=== PATIENT | female | born 1990 | race Caucasian/White ===

== ENCOUNTER → 2017-09-11 01:17 | Outpatient (CLI) | payer MEDICAID, SELFPAY ==
--- NOTE | 2017-09-11 10:12 | DI.REPORT_ITS ---
SYMPTOM/DIAGNOSIS: INTERVAL GROWTH, DO ON sep 12, Z34.83 OBSTETRICAL ASSESSMENT: There is a single intrauterine gestation. Estimated sonographic age is 35 weeks, 5 days. Estimated weight is 2717 grams which is the 46th percentile The fetus is in the breech position. Amniotic fluid was measured at 12.3 cm, visually amniotic fluid is within normal limits. Placenta is posterior . IMPRESSION: Single living intrauterine gestation. Estimated sonographic age is 35 weeks 5 days. Many abnormalities cannot be diagnosed. A normal exam does not exclude a congenital anomaly. Radiology No. [id number] LMP: Exam Date: 09/11/17 [facility] wks days on EDC ([facility]) 10/11/17 Confirmed: HISTORY: GROWTH, PRES ---- PREDICTED GESTATIONAL AGE NUMBER 35 +5 weeks with a range of 34 +5 week to 36 +5 weeks. 1 Determined by_[id number]___LMP___HISTORY Info. pertaining to fetus # PLACENTA PRESENTATION Grade II-III Cephalic___ Anterior___Posterior_XX__ Breech___XX_ (Urbano breech) Right Left Transverse(head right___ Fundal___Low-lying___Previa___ Transverse(head left___ Varying BIOMETRY AMNIOTIC FLUID BPD: 87 mm 35 +1 weeks Normal HC: 322 mm 36 +2 weeks AC: 315 mm 35 +3 weeks FL: 70 mm 35 +5 weeks AMNIOTIC FLUID INDEX >26 WK CRL: mm weeks Cisterna Magna: mm CI: 76 RUQ:_3.9 LUQ__2.0 Cerebellum: cm EFW: 2717 grams 46% Percentile RLQ:__2.2____LLQ__4.2 Total:__12.3__cms Composite AGE= 35 +5 wks EDC by US__10/11/17 BIOPHYSICAL PROFILE ANATOMY IDENTIFIED SCORE 0/2 Heart: 4-Chamber___Rate:BPM LVOT: RVOT: Amniotic Fluid(>2cms)____ Stomach: Kidneys: Respirations (>30 secs) Bladder: Post. Fossa: Body Flex/Extension 3 vessel cord: Ventricles: cord insertion: Lips:____ Extremity Flex/Extension spinal morphology: Nose: Total Score= Palate: NS=not seen
== END ==
PROVIDERS: PCP Nurse Practitioner; Visit Provider Advanced Practice Midwife
DX: Z34.83 Encounter for supervision of other normal pregnancy, third trimester (principal); Z36.2 Encounter for other antenatal screening follow-up
CPT/HCPCS: 76816; 87081

== ENCOUNTER → 2017-09-11 12:20 | Outpatient (REF) | payer MEDICAID, SELFPAY | LOC: LBN 12:20 | PROVIDERS: PCP Nurse Practitioner; Visit Provider Advanced Practice Midwife | DX: Z34.93 Encounter for supervision of normal pregnancy, unspecified, third trimester (principal) | CPT/HCPCS: 87081 ==

== ENCOUNTER 2017-10-05 14:24 | Outpatient (CLI) | payer MEDICAID, SELFPAY ==
[2017-10-05 17:41] LABS: *AMPHETAMINES SCREEN URINE Negative (Negative); *BARBITURATES SCREEN URINE Negative (Negative); *BENZODIAZEPINES SCREEN URINE Negative (Negative); Cannabinoids THC POSITIVE (Negative); Cocaine Screen,Urine Negative (Negative); METHADONE URINE SCREEN Negative (Negative); OPIATES URINE SCREEN Negative (Negative); Tricyclic Antidepressants Negative (Negative)
[2017-10-13 15:18] LABS: Buprenorphine Negative
== END 2017-10-05 14:25 ==
PROVIDERS: PCP Nurse Practitioner; Visit Provider Advanced Practice Midwife
DX: O32.0XX0 Maternal care for unstable lie, not applicable or unspecified (principal); O99.333 Smoking (tobacco) complicating pregnancy, third trimester; F17.210 Nicotine dependence, cigarettes, uncomplicated; Z3A.39 39 weeks gestation of pregnancy
CPT/HCPCS: 80307; 59025

== ENCOUNTER 2017-10-06 19:39 | Observation (INO) | payer MEDICAID, SELFPAY ==
[2017-10-06 20:57] LABS: HCT 33.2 % (36.0-46.0); HGB 11.4 g/dL (12.0-15.5); Mean Corp. HGB Concentration 34.3 g/dL (32.0-36.0); Mean Corpuscular Hemoglobin 29.2 pg (27.0-33.0); Mean Corpuscular Volume 85.1 fL (80-95); Mean Platelet Volume 10.5 fL (8.0-11.0); Platelet Count 176 x1000/uL (130-400); RBC Distribution Width 13.5 % (11.7-14.6); White Blood Cell Count 16.95 k/cumm (4.4-10.8)
[2017-10-06 21:17] LABS: ETHANOL BLOOD < 3.0 mg/dL (<3)
[2017-10-06 22:00] LABS: *AMPHETAMINES SCREEN URINE Negative (Negative); *BARBITURATES SCREEN URINE Negative (Negative); *BENZODIAZEPINES SCREEN URINE Negative (Negative); Cannabinoids THC POSITIVE (Negative); Cocaine Screen,Urine Negative (Negative); METHADONE URINE SCREEN Negative (Negative); OPIATES URINE SCREEN Negative (Negative); Tricyclic Antidepressants Negative (Negative)
== END 2017-10-06 23:20 | disposition home or self-care (01) ==
LOC: OBS 10-07 10:14
PROVIDERS: Admitting Provider Advanced Practice Midwife; PCP Nurse Practitioner; Visit Provider Advanced Practice Midwife
DX: O47.1 False labor at or after 37 completed weeks of gestation (principal); Z3A.39 39 weeks gestation of pregnancy
CPT/HCPCS: 36415; 80307; 85027; 86850; 86900; 86901; 80320; G0378

== ENCOUNTER 2017-10-07 10:30 | Inpatient (IN) | payer MEDICAID, SELFPAY ==
--- NOTE | 2017-10-07 13:22 | PLAC_PTH ---
PATIENT: MILDRED ESTRELLA LOC: OBS U#:[id number] AGE/SX: 26/F ROOM: OBS.305 RE10/07/[address]: Janell Velasquez CNM : 1990 BED: A DIS: 10/09/2017 SPEC #: [id number] RECD: 10/10/17 11:58 STATUS: ALMITA REDariela #: [id number] LUCRECIA: 10/07/17 13:[address]: Janell Velasquez DEPT: Surgical Specimen RECD BY: Neelima Rahman ENTERED: 10/10/17 12:02 SP TYPE: PLAC OTHR DR: Aydee Velazquez APRN Tissues: 1 - PLACENTA (3RD TRIMESTER) Procedures: GROSS AND MICRO LEVEL 5 Comments: [id number]
[2017-10-07] MEDS: Oxytocin 10 UNITS/ML VIAL IM (13:30)
[2017-10-07] MEDS: Methylergonovine 0.2 MG/ML VIAL IM (13:39)
[2017-10-07] MEDS: Normal Saline Flush 10 ML SYR IVP (13:50)
[2017-10-07] MEDS: Hamamelis Leaf/Glycerin 100 EACH BOX PR (15:55)
[2017-10-07] MEDS: Acetaminophen 325 MG TAB 650 MG PO (15:55)
[2017-10-07] MEDS: Ibuprofen 600 MG TAB PO (15:55)
[2017-10-07 17:25] LABS: HCT 39.4 % (36.0-46.0); HGB 13.4 g/dL (12.0-15.5); Mean Corpuscular Hemoglobin 29.1 pg (27.0-33.0); Mean Corpuscular Volume 85.5 fL (80-95); Mean Platelet Volume 11.9 fL (8.0-11.0); Platelet Count 201 x1000/uL (130-400); RBC 4.61 m/cumm (4.00-5.20); RBC Distribution Width 13.9 % (11.7-14.6); White Blood Cell Count 18.87 k/cumm (4.4-10.8)
[2017-10-08] MEDS: Ibuprofen 600 MG TAB PO ×3 (01:10→16:58)
[2017-10-08] MEDS: Acetaminophen 325 MG TAB 650 MG PO ×3 (01:10→16:58)
[2017-10-08] MEDS: Docusate Sodium 100 MG CAP PO (09:32)
--- NOTE | 2017-10-08 10:44 | W.OBCONSULT ---
History of Present Illness Narrative: Patient is kind of messed up I did make it stop so it is red and does smoke listening selective Process a scratch that scratch that they does not want to do things like this. Select this Insert provider meeting Chart note: Pt's status discussed at Provider meeting today, PFSH Family History Mother Diabetes Alcohol abuse Depression Father Substance abuse Sister Anxiety Brother Anxiety Depression Other Breast cancer Medical History ADHD (attention deficit hyperactivity disorder) Anxiety Depression Social History Smoking/Tobacco Use Status: Current every day Surgical History Biopsy of breast (10/14/14) Breast, Lumpectomy Results Labs : 10/07/17 11:40 Abnormal lab results 10/07/17 Range/Units 11:40 WBC 18.87 H (4.4-10.8) k/cumm MPV 11.9 H (8.0-11.0) fL Laboratory Tests 10/07/17 10/07/17 11:40 11:40 WBC 18.87 H RBC 4.61 Hgb 13.4 Hct 39.4 MCV 85.5 MCH 29.1 MCHC 34.0 RDW 13.9 Plt Count 201 MPV 11.9 H Patient ABO/Rh O Positive Antibody Screen Negative
[2017-10-08] MEDS: Prenatal Multivitamin w/CA,FE TAB 1 TAB PO (10:55)
[2017-10-08] MEDS: Sertraline 50 MG TAB 125 MG PO (11:00)
[2017-10-08 18:52] LABS: HCT 23.1 % (36.0-46.0); HGB 7.8 g/dL (12.0-15.5); Mean Corp. HGB Concentration 33.8 g/dL (32.0-36.0); Mean Corpuscular Hemoglobin 29.7 pg (27.0-33.0); Mean Corpuscular Volume 87.8 fL (80-95); Platelet Count 166 x1000/uL (130-400); RBC 2.63 m/cumm (4.00-5.20); RBC Distribution Width 13.8 % (11.7-14.6); White Blood Cell Count 11.88 k/cumm (4.4-10.8)
[2017-10-08] MEDS: Lidocaine 2% Multi-Dose 20 ML VIAL (21:00)
[2017-10-09] MEDS: Ibuprofen 600 MG TAB PO (06:44)
[2017-10-09] MEDS: Acetaminophen 325 MG TAB 650 MG PO (06:44)
== END 2017-10-09 11:52 | disposition home or self-care (01) | DRG 767 ==
PROVIDERS: Admitting Provider Advanced Practice Midwife; PCP Nurse Practitioner; Visit Provider Advanced Practice Midwife
DX: O73.0 Retained placenta without hemorrhage (principal); Z37.0 Single live birth; O63.9 Long labor, unspecified; O99.324 Drug use complicating childbirth; Z3A.39 39 weeks gestation of pregnancy; Z30.017 Encounter for initial prescription of implantable subdermal contraceptive; O99.03 Anemia complicating the puerperium; D64.9 Anemia, unspecified; F19.10 Other psychoactive substance abuse, uncomplicated; O99.334 Smoking (tobacco) complicating childbirth; F17.210 Nicotine dependence, cigarettes, uncomplicated; O99.344 Other mental disorders complicating childbirth; F41.8 Other specified anxiety disorders; F90.9 Attention-deficit hyperactivity disorder, unspecified type; O99.62 Diseases of the digestive system complicating childbirth; K21.9 Gastro-esophageal reflux disease without esophagitis; O99.52 Diseases of the respiratory system complicating childbirth; J45.909 Unspecified asthma, uncomplicated; Z63.5 Disruption of family by separation and divorce
CPT/HCPCS: 85027; 86850; 86900; 86901; 88307; G0378; J2210; J3490

== ENCOUNTER 2018-01-14 10:04 | Emergency (ER) | payer MEDICAID, SELFPAY ==
[2018-01-14 10:10] VITALS: BP 100/65; PULSE 87; RESP 16; TEMP 36.5; O2SAT 97
--- NOTE | 2018-01-14 10:36 | W.ED.GENAD ---
Discharge Plan Disposition Patient Disposition: HOME Condition: Good Discharge Details Chief Complaint: EyeProblem Clinical Impression: Conjunctivitis Primary Care Provider: Aydee Velazquez ED Provider: Maco Mclean Home Meds and New Rx's Prescriptions: New erythromycin 5 mg/gram (0.5 %) ointment 0.5 inch OP QID Qty: 3.5 RF: 0 No Action albuterol sulfate [ProAir HFA] 8.5 GM HFA aerosol inhaler 2 puff Inhalation Q3H PRN Qty: 1 RF: 12 docusate sodium [Colace] 100 MG capsule 100 mg PO BID PRN PRNQty: 30 RF: 1 albuterol sulfate 1.25 MG/3 ML solution for nebulization 1.25 mg Inhalation PRN Qty: 100 RF: 3 methylphenidate HCl [Ritalin] 5 MG tablet 10 mg PO BID RF: 0 sertraline [Zoloft] 20 MG/1 ML concentrate 100 mg PO DAILY Qty: 1 RF: 0 diphenhydramine HCl [Benadryl] 25 MG capsule 25 mg PO PRN Qty: 25 RF: 0 ferrous sulfate [Iron (ferrous sulfate)] 325 MG tablet 325 mg PO DAILY Qty: 100 RF: 2 pantoprazole 40 MG tablet,delayed release (DR/EC) 40 mg PO DAILY Qty: 30 RF: 2 acetaminophen [Tylenol] 325 MG tablet 650 mg PO Q4H PRN PRNRF: 0 Discharge Instructions Instructions: Conjunctivitis (ED) Referrals: Aydee Velazquez, [employer] [Primary Care Provider] - Return if symptoms worsen Medical Decision Making History and exam consistent with early case of conjunctivitis. Will prescribe Erythromycin ointment. Advised to return to PCP if symptoms worsen or unresolved in a week. HPI General Mode of arrival: ambulatory. Date/Time Provider Initiated Documentation: 01/14/18 10:19. Limitations to Documentation: no limitations. Information obtained by: patient. History of Present Illness 27 year old F presents to the emergency department with the chief complaint of conjunctivitis. , described as mild, HPI Narrative: 27 y/o female here with daughter with c/o pink eye. She was signing her child for daycare three days ago and believes she was exposed to pink eye at that time. She developed red itchy eyes that evening. She woke up with drainage to both eyes. Denies any fever or chills. She and her child has been recovering from a cold for the last week or so. Related Data Home Medications Medication Instructions Recorded Confirmed albuterol sulfate [ProAir HFA] 2 puff INHALATION Q3H PRN #1 11/05/15 01/14/18 inhaler acetaminophen [Tylenol] 650 mg PO Q4H PRN PRN tab 08/27/16 01/14/18 docusate sodium [Colace] 100 mg PO BID PRN PRN #30 cap 09/06/16 01/14/18 albuterol sulfate 1.25 mg INHALATION PRN #100 vial 10/05/16 01/14/18 methylphenidate HCl [Ritalin] 10 mg PO BID tab-cap 03/24/17 01/14/18 sertraline [Zoloft] 100 mg PO DAILY #1 ml 05/17/17 01/14/18 diphenhydramine HCl [Benadryl] 25 mg PO PRN #25 tab 07/19/17 01/14/18 ferrous sulfate [Iron (ferrous 325 mg PO DAILY #100 tab 07/19/17 01/14/18 sulfate)] pantoprazole 40 mg PO DAILY #30 tabcr 08/24/17 01/14/18 erythromycin 0.5 inch OP QID #3.5 gm 01/14/18 Previous Rx's Medication Instructions Recorded acetaminophen [Tylenol] 650 mg PO Q4H PRN PRN tab 08/27/16 diphenhydramine HCl [Benadryl] 25 mg PO PRN #25 tab 07/19/17 ferrous sulfate [Iron (ferrous 325 mg PO DAILY #100 tab 07/19/17 sulfate)] pantoprazole 40 mg PO DAILY #30 tabcr 08/24/17 erythromycin 0.5 inch OP QID #3.5 gm 01/14/18 Allergies Allergy/AdvReac Type Severity Reaction Status Date / Time strawberry Allergy Intermediate Wheezing Unverified 01/14/18 10:14 fig newtons Allergy Intermediate Wheezing Uncoded 01/14/18 10:14 General Stated Complaint: EyeProblem ADELE: 5 Review of Systems Eyes Reports eye discharge, Reports irritation and Reports itchy eyes ENT Reports system reviewed and no additional complaints, except as docu Cardiovascular Reports system reviewed and no additional complaints, except as docu Respiratory Reports system reviewed and no additional complaints, except as docu Gastrointestinal Reports system reviewed and no additional complaints, except as docu Integumentary/Breasts Reports system reviewed and no additional complaints, except as docu Allergic/Immunologic Reports itchy eyes PFSH ADHD (attention deficit hyperactivity disorder) Anxiety Depression Family History Mother Diabetes Alcohol abuse Depression Father Substance abuse Sister Anxiety Brother Anxiety Depression Other Breast cancer Biopsy of breast (10/14/14) Breast, Lumpectomy Family History Mother Diabetes Alcohol abuse Depression Father Substance abuse Sister Anxiety Brother Anxiety Depression Other Breast cancer Medical History ADHD (attention deficit hyperactivity disorder) Anxiety Depression Social History Smoking/Tobacco Use Status: Current every day Surgical History Biopsy of breast (10/14/14) Breast, Lumpectomy Social History Smoking/Tobacco Use Status: Current every day Exam Const General: cooperative, healthy appearing and no acute distress Nutritional Appearance: thin Orientation: alert, awake and oriented x3 HENMT Head: atraumatic Ears: hearing grossly normal bilaterally, external ears normal and TM's normal bilaterally General nose exam: external nose normal and nares normal Mouth: oral mucosae normal, lip normal and tongue normal Throat: posterior oropharynx normal Eyes Alignment and Position: alignment normal Periorbital: periorbital findings normal Eyelids: eyelids normal Conjunctivae: conjunctival abnormality bilaterally conjunctival injection Sclera: sclerae normal Cornea: corneas normal Pupils: PERRL EOM: EOM intact bilaterally Neck Neck: full ROM and lymphadenopathy Resp Effort & Inspection: normal respiratory effort Auscultation: clear to auscultation bilaterally Cardio Rate: regular rate Rhythm: regular rhythm Skin General skin exam: no rashes or lesions noted Neuro General: alert, awake, oriented x3 and gait normal Extrem General: full ROM and normal capillary refill Course Vital Signs Temperature 36.5 C 01/14/18 10:10 Pulse 87 01/14/18 10:10 Respiratory Rate 16 01/14/18 10:10 Blood Pressure 100/65 01/14/18 10:10 Pulse Oximetry 97 01/14/18 10:10 Temperature 36.5 C 01/14/18 10:10 Temperature Source Skin 01/14/18 10:10 Pulse 87 01/14/18 10:10 Respiratory Rate 16 01/14/18 10:10 Respiratory Effort 01/14/18 10:13 Blood Pressure 100/65 01/14/18 10:10 Pulse Oximetry 97 12/09/18 10:10 Oxygen Delivery Method Room Air 01/14/18 10:10 Oxygen Flow Rate 0 01/14/18 10:10 Pain Level 5 01/14/18 10:10
--- NOTE | 2018-01-14 10:52 | ED.GENADUL_ITS ---
Discharge Plan Disposition Patient Disposition: HOME Condition: Good Discharge Details Chief Complaint: EyeProblem Clinical Impression: Conjunctivitis Primary Care Provider: Aydee Velazquez ED Provider: Maco Mclean Home Meds and New Rx's Prescriptions: New erythromycin 5 mg/gram (0.5 %) ointment 0.5 inch OP QID Qty: 3.5 RF: 0 No Action albuterol sulfate [ProAir HFA] 8.5 GM HFA aerosol inhaler 2 puff Inhalation Q3H PRN Qty: 1 RF: 12 docusate sodium [Colace] 100 MG capsule 100 mg PO BID PRN PRNQty: 30 RF: 1 albuterol sulfate 1.25 MG/3 ML solution for nebulization 1.25 mg Inhalation PRN Qty: 100 RF: 3 methylphenidate HCl [Ritalin] 5 MG tablet 10 mg PO BID RF: 0 sertraline [Zoloft] 20 MG/1 ML concentrate 100 mg PO DAILY Qty: 1 RF: 0 diphenhydramine HCl [Benadryl] 25 MG capsule 25 mg PO PRN Qty: 25 RF: 0 ferrous sulfate [Iron (ferrous sulfate)] 325 MG tablet 325 mg PO DAILY Qty: 100 RF: 2 pantoprazole 40 MG tablet,delayed release (DR/EC) 40 mg PO DAILY Qty: 30 RF: 2 acetaminophen [Tylenol] 325 MG tablet 650 mg PO Q4H PRN PRNRF: 0 Discharge Instructions Instructions: Conjunctivitis (ED) Referrals: Aydee eVlazquez, [employer]ATIONS [Primary Care Provider] - Return if symptoms worsen Medical Decision Making History and exam consistent with early case of conjunctivitis. Will prescribe Erythromycin ointment. Advised to return to PCP if symptoms worsen or unresolved in a week. HPI General Mode of arrival: ambulatory . Date/Time Provider Initiated Documentation: 01/14/18 10:19 . Limitations to Documentation: no limitations . Information obtained by: patient . History of Present Illness 27 year old F presents to the emergency department with the chief complaint of conjunctivitis. , described as mild, HPI Narrative: 27 y/o female here with daughter with c/o pink eye. She was signing her child for daycare three days ago and believes she was exposed to pink eye at that time. She developed red itchy eyes that evening. She woke up with drainage to both eyes. Denies any fever or chills. She and her child has been recovering from a cold for the last week or so. Related Data Home Medications Medication Instructions Recorded Confirmed albuterol sulfate [ProAir HFA] 2 puff INHALATION Q3H PRN #1 11/05/15 01/14/18 inhaler acetaminophen [Tylenol] 650 mg PO Q4H PRN PRN tab 08/27/16 01/14/18 docusate sodium [Colace] 100 mg PO BID PRN PRN #30 cap 09/06/16 01/14/18 albuterol sulfate 1.25 mg INHALATION PRN #100 vial 10/05/16 01/14/18 methylphenidate HCl [Ritalin] 10 mg PO BID tab-cap 03/24/17 01/14/18 sertraline [Zoloft] 100 mg PO DAILY #1 ml 05/17/17 01/14/18 diphenhydramine HCl [Benadryl] 25 mg PO PRN #25 tab 07/19/17 01/14/18 ferrous sulfate [Iron (ferrous 325 mg PO DAILY #100 tab 07/19/17 01/14/18 sulfate)] pantoprazole 40 mg PO DAILY #30 tabcr 08/24/17 01/14/18 erythromycin 0.5 inch OP QID #3.5 gm 01/14/18 Previous Rx's Medication Instructions Recorded acetaminophen [Tylenol] 650 mg PO Q4H PRN PRN tab 08/27/16 diphenhydramine HCl [Benadryl] 25 mg PO PRN #25 tab 07/19/17 ferrous sulfate [Iron (ferrous 325 mg PO DAILY #100 tab 07/19/17 sulfate)] pantoprazole 40 mg PO DAILY #30 tabcr 08/24/17 erythromycin 0.5 inch OP QID #3.5 gm 01/14/18 Allergies Allergy/AdvReac Type Severity Reaction Status Date / Time strawberry Allergy Intermediate Wheezing Unverified 01/14/18 10:14 fig newtons Allergy Intermediate Wheezing Uncoded 01/14/18 10:14 General Stated Complaint: EyeProblem ADELE: 5 Review of Systems Eyes Reports eye discharge, Reports irritation and Reports itchy eyes ENT Reports system reviewed and no additional complaints, except as docu Cardiovascular Reports system reviewed and no additional complaints, except as docu Respiratory Reports system reviewed and no additional complaints, except as docu Gastrointestinal Reports system reviewed and no additional complaints, except as docu Integumentary/Breasts Reports system reviewed and no additional complaints, except as docu Allergic/Immunologic Reports itchy eyes PFSH ADHD (attention deficit hyperactivity disorder) Anxiety Depression Family History Mother Diabetes Alcohol abuse Depression Father Substance abuse Sister Anxiety Brother Anxiety Depression Other Breast cancer Biopsy of breast (10/14/14) Breast, Lumpectomy Family History Mother Diabetes Alcohol abuse Depression Father Substance abuse Sister Anxiety Brother Anxiety Depression Other Breast cancer Medical History ADHD (attention deficit hyperactivity disorder) Anxiety Depression Social History Smoking/Tobacco Use Status: Current every day Surgical History Biopsy of breast (10/14/14) Breast, Lumpectomy Social History Smoking/Tobacco Use Status: Current every day Exam Const General: cooperative, healthy appearing and no acute distress Nutritional Appearance: thin Orientation: alert, awake and oriented x3 HENMT Head: atraumatic Ears: hearing grossly normal bilaterally, external ears normal and TM's normal bilaterally General nose exam: external nose normal and nares normal Mouth: oral mucosae normal, lip normal and tongue normal Throat: posterior oropharynx normal Eyes Alignment and Position: alignment normal Periorbital: periorbital findings normal Eyelids: eyelids normal Conjunctivae: conjunctival abnormality bilaterally conjunctival injection Sclera: sclerae normal Cornea: corneas normal Pupils: PERRL EOM: EOM intact bilaterally Neck Neck: full ROM and lymphadenopathy Resp Effort & Inspection: normal respiratory effort Auscultation: clear to auscultation bilaterally Cardio Rate: regular rate Rhythm: regular rhythm Skin General skin exam: no rashes or lesions noted Neuro General: alert, awake, oriented x3 and gait normal Extrem General: full ROM and normal capillary refill Course Vital Signs Temperature 36.5 C 01/14/18 10:10 Pulse 87 01/14/18 10:10 Respiratory Rate 16 01/14/18 10:10 Blood Pressure 100/65 01/14/18 10:10 Pulse Oximetry 97 01/14/18 10:10 Temperature 36.5 C 01/14/18 10:10 Temperature Source Skin 01/14/18 10:10 Pulse 87 01/14/18 10:10 Respiratory Rate 16 01/14/18 10:10 Respiratory Effort 01/14/18 10:13 Blood Pressure 100/65 01/14/18 10:10 Pulse Oximetry 97 12/09/18 10:10 Oxygen Delivery Method Room Air 01/14/18 10:10 Oxygen Flow Rate 0 01/14/18 10:10 Pain Level 5 01/14/18 10:10
== END 2018-01-14 10:52 | disposition home or self-care (01) ==
PROVIDERS: Emergency Provider Nurse Practitioner Family; PCP Nurse Practitioner
DX: H10.89 Other conjunctivitis (principal)
CPT/HCPCS: 99283

== ENCOUNTER 2018-07-23 11:44 | Emergency (ER) | payer MEDICAID, SELFPAY ==
[2018-07-23 11:47] VITALS: BP 122/68; PULSE 92; RESP 14; TEMP 36.9; O2SAT 98
--- NOTE | 2018-07-23 12:05 | W.ED.GENAD ---
Discharge Plan Disposition Patient Disposition: HOME Condition: Fair Discharge Details Chief Complaint: Sorethroat Clinical Impression: URI (upper respiratory infection) Primary Care Provider: Aydee Velazquez ED Provider: Padma Gonsales Home Meds and New Rx's Prescriptions: New benzonatate [Tessalon Perles] 100 mg capsule 100 mg PO TID PRN (Reason: cough) Qty: 10 RF: 0 Continued albuterol sulfate [ProAir HFA] 8.5 GM HFA aerosol inhaler 2 puff Inhalation Q3H PRN Qty: 1 RF: 12 albuterol sulfate 1.25 MG/3 ML solution for nebulization 1.25 mg Inhalation PRN Qty: 100 RF: 3 sertraline [Zoloft] 20 MG/1 ML concentrate 100 mg PO DAILY Qty: 1 RF: 0 diphenhydramine HCl [Benadryl] 25 MG capsule 25 mg PO PRN Qty: 25 RF: 0 acetaminophen [Tylenol] 325 MG tablet 650 mg PO Q4H PRN PRNRF: 0 Discharge Instructions Instructions: Upper Respiratory Infection (ED) Additional Instructions: Encourage hydration. He may continue with Tylenol and ibuprofen as needed for fevers or discomfort. Please use Tessalon Perles as prescribed to help with cough. Please follow-up with primary care in 1 week if not improving. I have called them but was unable to get through to make an appointment. If they should reach out to you, if you do not hear from them in the next few hours please call the office, number listed below. If you develop shortness of breath, difficulty breathing or other new/worsening symptoms please seek care urgently once again. Stop smoking. Referrals: Aydee Velazquez, PUNEET [Primary Care Provider] - Discharge Data Discharge Date/Time-TO BE ENTERED AT DEPARTURE: 07/23/18 12:52 Medical Decision Making Patient is 27-year-old female presenting today with chief complaint of sore throat. She reports that she is had URI symptoms for the past 8 days. Is endorsing bilateral ear pain, sore throat, cough. No GI upset. Unknown status. She is primarily concerned for possible strep pharyngitis. On exam, she has some mild erythema to the right ear but this does not appear to be consistent with otitis media. She has some nasal congestion. No acute findings on posterior oropharynx. Patient does not appear consistent with strep throat. Lungs are clear in all shankar. Patient is an active smoker. She is nontoxic-appearing. Slightly tachycardic at 92, otherwise vital signs are unremarkable. Patient is hydrating orally, drinking coffee. Advised is likely viral. Her rapid strep testing is negative. Encourage hydration. Advised Tylenol and ibuprofen as needed for discomfort. UPT negative. Will prescribe Tessalon Perles to help with symptom medic management. She is given strict return precautions. Advise follow-up with primary care in 1 week if not improving. All her questions and concerns were addressed she is in agreement this plan HPI General Mode of arrival: ambulatory. Date/Time Provider Initiated Documentation: 07/23/18 12:05. Limitations to Documentation: no limitations. Information obtained by: patient, family and RN notes reviewed. History of Present Illness 27 year old F presents to the emergency department with the chief complaint of URI, described as moderate, with intensity rated at 6 (sore throat). Quality is described as burning, Patient started experiencing this day(s) (8) and it has been constant. No relieving factors improve symptom(s), Eating worsens symptoms (worse with hot liquids) . Patient notes cough (nonproductive), fever/chills (fever this AM) and loss of appetite; denies chest pain, nausea/vomiting, rash, shortness of breath and weakness. Patient did receive the following treatments prior to arrival, none Related Data Home Medications Medication Instructions Recorded Confirmed albuterol sulfate [ProAir HFA] 2 puff INHALATION Q3H PRN #1 11/05/15 07/23/18 inhaler acetaminophen [Tylenol] 650 mg PO Q4H PRN PRN tab 08/27/16 07/23/18 albuterol sulfate 1.25 mg INHALATION PRN #100 vial 10/05/16 07/23/18 sertraline [Zoloft] 100 mg PO DAILY #1 ml 05/17/17 07/23/18 diphenhydramine HCl [Benadryl] 25 mg PO PRN #25 tab 07/19/17 07/23/18 benzonatate [Tessalon Perles] 100 mg PO TID PRN #10 cap 07/23/18 Previous Rx's Medication Instructions Recorded acetaminophen [Tylenol] 650 mg PO Q4H PRN PRN tab 08/27/16 diphenhydramine HCl [Benadryl] 25 mg PO PRN #25 tab 07/19/17 benzonatate [Tessalon Perles] 100 mg PO TID PRN #10 cap 07/23/18 Allergies Allergy/AdvReac Type Severity Reaction Status Date / Time strawberry Allergy Intermediate Wheezing Unverified 07/23/18 11:51 fig newtons Allergy Intermediate Wheezing Uncoded 07/23/18 11:51 General Stated Complaint: Sorethroat ADELE: 4 Review of Systems Constitutional Reports as per HPI, Denies chills, Denies fever(s), Denies headache(s) and Denies poor appetite Eyes Reports as per HPI, Denies eye discharge and Denies irritation ENT Reports as per HPI, Denies ear discharge, Reports otalgia, Denies headache(s), Reports nasal congestion, Reports nasal discharge, Denies sinus pressure and Reports sore throat Cardiovascular Reports as per HPI, Denies chest pain and Denies dyspnea Respiratory Reports as per HPI, Reports cough, Denies hemoptysis, Denies dyspnea and Denies wheezing Gastrointestinal Reports as per HPI, Denies abdominal pain, Denies change in bowel habits, Denies nausea and Denies vomiting Integumentary/Breasts Reports as per HPI and Denies rash Neurologic Reports as per HPI and Denies headache(s) Allergic/Immunologic Denies wheezing [facility] Medical History ADHD (attention deficit hyperactivity disorder) Anxiety Depression Surgical History Biopsy of breast (10/14/14) Breast, Lumpectomy Family History Mother Diabetes Alcohol abuse Depression Father Substance abuse Sister Anxiety Brother Anxiety Depression Other Breast cancer Social History Smoking/Tobacco Use Status: Current every day Tobacco Type: cigarettes Alcohol Intake: never Drug use: Rarely Substance use type: marijuana Do you feel safe at home: Yes Do you feel safe in your relationship?: Yes Exam Const General: cooperative, healthy appearing, comfortable, no acute distress, well developed and well groomed Nutritional Appearance: average body habitus and well nourished Orientation: alert and awake [facility] Head: normal to inspection, normocephalic and atraumatic Ears: hearing grossly normal bilaterally, external ears normal and TM's abnormal bilaterally (mild erythema to right TM, no bulging, loss of landmarks) General nose exam: external nose normal and nares normal Face and sinus: normal facial exam, sinuses nontender and face symmetric Mouth: oral mucosae normal, lip normal, tongue normal, oropharynx normal and moist mucous membranes Teeth and gingiva: dentition normal Throat: posterior oropharynx normal, tonsils normal and uvula midline Eyes General: appearance normal, both eyes and all related structures Neck Neck: normal visual inspection, full ROM, no lymphadenopathy and no meningeal signs Resp Effort & Inspection: normal respiratory effort, able to speak in complete sentences and no respiratory distress Auscultation: clear to auscultation bilaterally, no rales, no rhonchi and no wheezes Cardio Rate: regular rate Rhythm: regular rhythm Heart Sounds: S1 normal and S2 normal Skin General skin exam: no rashes or lesions noted Neuro General: alert and awake Cognition: normal cognition Speech: speech normal Gait: normal gait Psych Appearance: grossly normal and well kempt Mental Status: mental status grossly normal Speech and Movement: speech and movement normal Course Vital Signs Temperature 36.9 C 07/23/18 11:47 Pulse 92 H 07/23/18 11:47 Respiratory Rate 14 07/23/18 11:47 Blood Pressure 122/68 07/23/18 11:47 Pulse Oximetry 98 07/23/18 11:47 Temperature 36.9 C 07/23/18 11:47 Temperature Source Temporal Artery Scan 07/23/18 11:47 Pulse 92 H 07/23/18 11:47 Respiratory Rate 14 07/23/18 11:47 Respiratory Effort Non-Labored 07/23/18 11:50 Blood Pressure 122/68 07/23/18 11:47 Blood Pressure Position Sitting 07/23/18 11:47 Pulse Oximetry 98 07/23/18 11:47 Oxygen Delivery Method Room Air 07/23/18 11:47 Oxygen Flow Rate 0 07/23/18 11:47 Pain Level 6 07/23/18 11:47
--- NOTE | 2018-07-23 12:45 | ED.GENADUL_ITS ---
Discharge Plan Disposition Patient Disposition: HOME Condition: Fair Discharge Details Chief Complaint: Sorethroat Clinical Impression: URI (upper respiratory infection) Primary Care Provider: Aydee Velazquez ED Provider: Padma Gonsales Home Meds and New Rx's Prescriptions: New benzonatate [Tessalon Perles] 100 mg capsule 100 mg PO TID PRN (Reason: cough) Qty: 10 RF: 0 Continued albuterol sulfate [ProAir HFA] 8.5 GM HFA aerosol inhaler 2 puff Inhalation Q3H PRN Qty: 1 RF: 12 albuterol sulfate 1.25 MG/3 ML solution for nebulization 1.25 mg Inhalation PRN Qty: 100 RF: 3 sertraline [Zoloft] 20 MG/1 ML concentrate 100 mg PO DAILY Qty: 1 RF: 0 diphenhydramine HCl [Benadryl] 25 MG capsule 25 mg PO PRN Qty: 25 RF: 0 acetaminophen [Tylenol] 325 MG tablet 650 mg PO Q4H PRN PRNRF: 0 Discharge Instructions Instructions: Upper Respiratory Infection (ED) Additional Instructions: Encourage hydration. He may continue with Tylenol and ibuprofen as needed for fevers or discomfort. Please use Tessalon Perles as prescribed to help with cough. Please follow-up with primary care in 1 week if not improving. I have called them but was unable to get through to make an appointment. If they should reach out to you, if you do not hear from them in the next few hours please call the office, number listed below. If you develop shortness of breath, difficulty breathing or other new/worsening symptoms please seek care urgently once again. Stop smoking. Referrals: Aydee Velazquez, PUNEET [Primary Care Provider] - Discharge Data Discharge Date/Time-TO BE ENTERED AT DEPARTURE: 07/23/18 12:52 Medical Decision Making Patient is 27-year-old female presenting today with chief complaint of sore throat. She reports that she is had URI symptoms for the past 8 days. Is endorsing bilateral ear pain, sore throat, cough. No GI upset. Unknown status. She is primarily concerned for possible strep pharyngitis. On exam, she has some mild erythema to the right ear but this does not appear to be consistent with otitis media. She has some nasal congestion. No acute findings on posterior oropharynx. Patient does not appear consistent with strep throat. Lungs are clear in all shankar. Patient is an active smoker. She is nontoxic-appearing. Slightly tachycardic at 92, otherwise vital signs are unremarkable. Patient is hydrating orally, drinking coffee. Advised is likely viral. Her rapid strep testing is negative. Encourage hydration. Advised Tylenol and ibuprofen as needed for discomfort. UPT negative. Will prescribe Tessalon Perles to help with symptom medic management. She is given strict return precautions. Advise follow-up with primary care in 1 week if not improving. All her questions and concerns were addressed she is in agreement this plan HPI General Mode of arrival: ambulatory . Date/Time Provider Initiated Documentation: 07/23/18 12:05 . Limitations to Documentation: no limitations . Information obtained by: patient, family and RN notes reviewed . History of Present Illness 27 year old F presents to the emergency department with the chief complaint of URI, described as moderate, with intensity rated at 6 (sore throat). Quality is described as burning, Patient started experiencing this day(s) (8) and it has been constant. No relieving factors improve symptom(s), Eating worsens symptoms (worse with hot liquids) . Patient notes cough (nonproductive), fever/chills (fever this AM) and loss of appetite; denies chest pain, nausea/vomiting, rash, shortness of breath and weakness. Patient did receive the following treatments prior to arrival, none Related Data Home Medications Medication Instructions Recorded Confirmed albuterol sulfate [ProAir HFA] 2 puff INHALATION Q3H PRN #1 11/05/15 07/23/18 inhaler acetaminophen [Tylenol] 650 mg PO Q4H PRN PRN tab 08/27/16 07/23/18 albuterol sulfate 1.25 mg INHALATION PRN #100 vial 10/05/16 07/23/18 sertraline [Zoloft] 100 mg PO DAILY #1 ml 05/17/17 07/23/18 diphenhydramine HCl [Benadryl] 25 mg PO PRN #25 tab 07/19/17 07/23/18 benzonatate [Tessalon Perles] 100 mg PO TID PRN #10 cap 07/23/18 Previous Rx's Medication Instructions Recorded acetaminophen [Tylenol] 650 mg PO Q4H PRN PRN tab 08/27/16 diphenhydramine HCl [Benadryl] 25 mg PO PRN #25 tab 07/19/17 benzonatate [Tessalon Perles] 100 mg PO TID PRN #10 cap 07/23/18 Allergies Allergy/AdvReac Type Severity Reaction Status Date / Time strawberry Allergy Intermediate Wheezing Unverified 07/23/18 11:51 fig newtons Allergy Intermediate Wheezing Uncoded 07/23/18 11:51 General Stated Complaint: Sorethroat ADELE: 4 Review of Systems Constitutional Reports as per HPI, Denies chills, Denies fever(s), Denies headache(s) and Denies poor appetite Eyes Reports as per HPI, Denies eye discharge and Denies irritation ENT Reports as per HPI, Denies ear discharge, Reports otalgia, Denies headache(s), Reports nasal congestion, Reports nasal discharge, Denies sinus pressure and Reports sore throat Cardiovascular Reports as per HPI, Denies chest pain and Denies dyspnea Respiratory Reports as per HPI, Reports cough, Denies hemoptysis, Denies dyspnea and Denies wheezing Gastrointestinal Reports as per HPI, Denies abdominal pain, Denies change in bowel habits, Denies nausea and Denies vomiting Integumentary/Breasts Reports as per HPI and Denies rash Neurologic Reports as per HPI and Denies headache(s) Allergic/Immunologic Denies wheezing [facility] Medical History ADHD (attention deficit hyperactivity disorder) Anxiety Depression Surgical History Biopsy of breast (10/14/14) Breast, Lumpectomy Family History Mother Diabetes Alcohol abuse Depression Father Substance abuse Sister Anxiety Brother Anxiety Depression Other Breast cancer Social History Smoking/Tobacco Use Status: Current every day Tobacco Type: cigarettes Alcohol Intake: never Drug use: Rarely Substance use type: marijuana Do you feel safe at home: Yes Do you feel safe in your relationship?: Yes Exam Const General: cooperative, healthy appearing, comfortable, no acute distress, well developed and well groomed Nutritional Appearance: average body habitus and well nourished Orientation: alert and awake [facility] Head: normal to inspection, normocephalic and atraumatic Ears: hearing grossly normal bilaterally, external ears normal and TM's abnormal bilaterally (mild erythema to right TM, no bulging, loss of landmarks) General nose exam: external nose normal and nares normal Face and sinus: normal facial exam, sinuses nontender and face symmetric Mouth: oral mucosae normal, lip normal, tongue normal, oropharynx normal and moist mucous membranes Teeth and gingiva: dentition normal Throat: posterior oropharynx normal, tonsils normal and uvula midline Eyes General: appearance normal, both eyes and all related structures Neck Neck: normal visual inspection, full ROM, no lymphadenopathy and no meningeal s igns Resp Effort & Inspection: normal respiratory effort, able to speak in complete sentences and no respiratory distress Auscultation: clear to auscultation bilaterally, no rales, no rhonchi and no wheezes Cardio Rate: regular rate Rhythm: regular rhythm Heart Sounds: S1 normal and S2 normal Skin General skin exam: no rashes or lesions noted Neuro General: alert and awake Cognition: normal cognition Speech: speech normal Gait: normal gait Psych Appearance: grossly normal and well kempt Mental Status: mental status grossly normal Speech and Movement: speech and movement normal Course Vital Signs Temperature 36.9 C 07/23/18 11:47 Pulse 92 H 07/23/18 11:47 Respiratory Rate 14 07/23/18 11:47 Blood Pressure 122/68 07/23/18 11:47 Pulse Oximetry 98 07/23/18 11:47 Temperature 36.9 C 07/23/18 11:47 Temperature Source Temporal Artery Scan 07/23/18 11:47 Pulse 92 H 07/23/18 11:47 Respiratory Rate 14 07/23/18 11:47 Respiratory Effort Non-Labored 07/23/18 11:50 Blood Pressure 122/68 07/23/18 11:47 Blood Pressure Position Sitting 07/23/18 11:47 Pulse Oximetry 98 07/23/18 11:47 Oxygen Delivery Method Room Air 07/23/18 11:47 Oxygen Flow Rate 0 07/23/18 11:47 Pain Level 6 07/23/18 11:47
== END 2018-07-23 12:52 | disposition home or self-care (01) ==
LOC: ER 12:52
PROVIDERS: Emergency Provider Physician Assistant; PCP Nurse Practitioner
DX: J06.9 Acute upper respiratory infection, unspecified (principal); F17.210 Nicotine dependence, cigarettes, uncomplicated
CPT/HCPCS: 81025; 87880; 99283; 87081

== ENCOUNTER 2019-01-17 11:42 | Outpatient (CLI) | payer MEDICAID, SELFPAY ==
[2019-01-17 13:35] LABS: ETHANOL BLOOD < 3.0 mg/dL (<3)
[2019-01-17 13:53] LABS: *AMPHETAMINES SCREEN URINE Negative (Negative); *BARBITURATES SCREEN URINE Negative (Negative); *BENZODIAZEPINES SCREEN URINE Negative (Negative); Cannabinoids THC POSITIVE (Negative); Cocaine Screen,Urine Negative (Negative); METHADONE URINE SCREEN Negative (Negative); OPIATES URINE SCREEN Negative (Negative)
[2019-01-17 13:55] LABS: Tricyclic Antidepressants Negative (Negative)
[2019-01-29 10:48] LABS: Methylphenidate (Ritalin), S <1.0 ng/ml (5.0 - 20.0)
[2019-01-29 14:07] LABS: Amphetamines Negative ng/mL (Cutoff: 30)
[2019-01-29 14:08] LABS: Barbiturates Negative ng/mL (Cutoff: 75); Benzodiazepines Negative ng/mL (Cutoff: 75); Buprenorphine Negative ng/mL (Cutoff: 1); Cocaine Negative ng/mL (Cutoff: 30); Methadone Negative ng/mL (Cutoff: 40); Methamphetamine Negative ng/mL (Cutoff: 30); Opiates Negative ng/mL (Cutoff: 30)
[2019-01-29 14:09] LABS: Phencyclidine Negative ng/mL (Cutoff: 15)
== END 2019-01-17 12:02 ==
PROVIDERS: PCP Nurse Practitioner Family; Visit Provider Nurse Practitioner Family
DX: F15.20 Other stimulant dependence, uncomplicated (principal); Z79.899 Other long term (current) drug therapy; Z51.81 Encounter for therapeutic drug level monitoring
CPT/HCPCS: 36415; 80307; 80349; 80360; 80320